=== PATIENT | male | born 1990 | race Hispanic/Latino ===

== ENCOUNTER 2018-08-08 02:30 | Emergency (ER) | payer OTHER | END 2018-08-08 03:48 | disposition home or self-care (01) | LOC: EDH 02:30 | DX: H57.89 Other specified disorders of eye and adnexa (principal); Z72.0 Tobacco use | CPT/HCPCS: 99281 ==

== ENCOUNTER 2020-12-29 12:55 | Emergency (ER) | payer SELFPAY ==
[2020-12-29] MEDS ORDERED: OCTYL 2-CYANOACRYLATE 1 EACH TP ONE (14:22)
== END 2020-12-29 14:58 | disposition home or self-care (01) ==
LOC: EDH 12:55
DX: S61.411A Laceration without foreign body of right hand, initial encounter (principal); W01.0XXA Fall on same level from slipping, tripping and stumbling without subsequent striking against object, initial encounter; Y93.89 Activity, other specified; Y92.69 Other specified industrial and construction area as the place of occurrence of the external cause; Y99.8 Other external cause status
CPT/HCPCS: 12001; 73130